=== PATIENT | female | born 1960 | race Caucasian/White ===

== ENCOUNTER 2017-05-27 13:24 | Inpatient (IN) ==
[2017-05-27] MEDS ORDERED: ASPIRIN PO ONE (13:34)
--- NOTE | 2017-05-27 13:40 | EKG Report ---
Test Performed on : 05/27/2017 1:36:33 PM Test Reason : palpitations sob Blood Pressure : / mmHG Vent. Rate : 097 BPM Atrial Rate : 097 BPM P-R Int : 178 ms QRS Dur : 080 ms QT Int : 412 ms P-R-T Axes : 069 052 055 degrees QTc Int : 523 ms Normal sinus rhythm. Biatrial enlargement Prolonged QT Abnormal ECG When compared with ECG of 11-DEC-2016 21:09, No significant change was found Unconfirmed Result
--- NOTE | 2017-05-27 13:49 | ED EKG INTERP ---
This chart was entered by Lydia Sahu Scribe, acting as scribe for Edward Jackson MD. EKG Interpretation - EKG Time of EKG reading by physician:: 13:38 EKG Read and Signed by:: Edward Jackson EKG Interpretation (*Must complete 3 of following elements*): Abnormal Rate: 97 Rhythm: Normal Sinus Rhythm Comments: Abnormal ECG This chart was documented by the indicated scribe, (Lydia Sahu Scribe) and accurately reflects the services I performed and decisions made by aMnuel wells Christophe I, MD, as attested by the provider's signature.
--- NOTE | 2017-05-27 13:56 | Diag Imaging Result Doc PS360 ---
EXAM: CHEST-2 VIEWS HISTORY: palpitations sob TECHNIQUE: Two views COMPARISON: 12/11/2016 FINDINGS: There is a right-sided portacatheter. This is unchanged. No pneumothorax. The lungs are well expanded. The heart is not enlarged. The vessels are not distended. No pneumonia. No pleural effusions. IMPRESSION: No acute abnormality. Electronically signed by Ignacio Campbell 05/27/2017 1:53 PM
[2017-05-27 14:10] LABS: MANUAL DIFF NEEDED? NO
[2017-05-27] MEDS ORDERED: NITROGLYCERIN ONE (14:14)
[2017-05-27] MEDS ORDERED: ZOFRAN ONE (14:14)
[2017-05-27] MEDS ORDERED: NITROGLYCERIN SL ONE (14:14)
[2017-05-27] MEDS ORDERED: MORPHINE ONE (14:14)
[2017-05-27] MEDS ORDERED: MORPHINE IV ONE ×2 (14:15→16:28)
[2017-05-27] MEDS ORDERED: ZOFRAN IV ONE ×2 (14:15→15:34)
[2017-05-27 14:19] LABS: BASO% 0.6 % (0.0-0.8); EOS% 3.7 % (0.0-10.0); HEMATOCRIT 40.1 % (37.0-47.0); HEMOGLOBIN 14.1 g/dL (12.0-16.0); IMM GRAN# 0.02 X1000 (0.0-0.04); IMM GRAN% 0.2 % (0.0-0.5); LYMPH% 41.1 % (20.5-51.1); MCH 31.3 PG (27-31); MCHC 35.2 g/dL (33-37); MCV 89.1 FL (81-99); MONO# 0.78 X1000 (0.11-0.59); MONO% 7.1 % (1.7-9.3); MPV 10.6 FL (7.4-10.4); NEUT% 47.3 % (42.2-75.2); PLT 198 X1000 (130-400)
[2017-05-27 14:27] LABS: AGAP 10; ALBUMIN 4.2 g/dL (3.5-5.0); ALKALINE PHOSPHATASE 75 U/L (32-104); BUN 5 mg/dL (8-22); CHLORIDE 100 mmol/L (98-107); CK PROFILE 82 U/L (24-173); COSMO 273; GOT 14 U/L (10-30); GPT 13 U/L (10-36); POTASSIUM 2.8 mmol/L (3.5-5.1); SODIUM 138 mmol/L (136-145); TCO2 28 mmol/L (25-35); TOTAL PROTEIN 6.7 g/dL (6.3-8.3)
[2017-05-27] MEDS ORDERED: NS + KCL 20 MEQ 1,000 ML IV ONE (15:34)
--- NOTE | 2017-05-27 15:42 | PROVIDER DOCUMENTATION ---
This chart was entered by Lydia Sahu Scribe, acting as scribe for Edward Jackson MD. HPI-Cardiac General - General Chief Complaint: Palpitations Stated Complaint: CHEST PAIN,BLOOD PRESSURE Time Seen by Provider: 05/27/17 14:12 Source: patient Allergies/Adverse Reactions: Patient Allergies Allergy/AdvReac Type Severity Reaction Status Date / Time aspirin Allergy Severe ANAPHYLAXIS Verified 05/27/17 13:37 latex Allergy Severe HIVES Verified 05/27/17 13:37 prochlorperazine edisylate * Allergy Severe ANAPHYLAXIS Verified 05/27/17 13:37 [From Compazine] prochlorperazine maleate * Allergy Severe ANAPHYLAXIS Verified 05/27/17 13:37 [From Compazine] Penicillins Allergy Mild ITCHING Verified 05/27/17 13:37 tizanidine HCl * Allergy Unknown Unknown Verified 05/27/17 13:37 [From Zanaflex] baclofen Allergy Unknown Verified 05/27/17 13:37 erythromycin base AdvReac Severe NAUSEA/VOMI Verified 05/27/17 13:37 [Erythromycin Base] TING ketorolac tromethamine * AdvReac Severe NAUSEA/VOMI Verified 05/27/17 13:37 [From Toradol] TING metoclopramide HCl * AdvReac Severe hallucinations, Verified 05/27/17 13:37 [From Reglan] face & hands contracted bilaterally ofloxacin [From Floxin] AdvReac Severe hallucinati Verified 05/27/17 13:37 ons amitriptyline [From Elavil] AdvReac Intermediate DIZZINESS Verified 05/27/17 13: 38 Home Medications: Home Medication List Medication Instructions Recorded Confirmed Last Taken Type Duloxetine [Cymbalta] 60 mg PO DAILY 05/26/13 05/27/17 04/19/16 History Methadone 40 mg PO BID 02/19/15 05/27/17 04/20/16 16:30 History Lisinopril 10 mg DAILY 01/29/16 05/27/17 04/19/16 History Lansoprazole [Prevacid] 30 mg PO DAILY 12/11/16 05/27/17 Unknown History - History of Present Illness-Cardiac Nature of Presenting Problem: 57 Y/O F presents to ER with the complain of having palpation and chest pain this am. pt states that she feels her heart is fluttering and is been going on for X5 days. pt states that she also have MALIK, nausea and jaw pain. pt denies any other symptoms. Location: reports: other (L side) Quality of Pain: reports: pressure Severity in ED: mild Onset/Duration: this morning Timing: improving Palpitation Quality: other (fluttering) Nitro Today/Relief: reports: provided by ED Aspirin Treatment Today: reports: no aspirin today Review of Systems - Adult - REVIEW OF SYSTEMS - ADULT Constitutional: reports: no symptoms reported Eyes: reports: no symptoms reported Ears, Nose, Mouth & Throat: reports: no symptoms reported Cardiovascular: reports: chest pain, palpitations Respiratory: reports: no symptoms reported Gastrointestinal: reports: nausea. denies: abdominal pain, diarrhea Genitourinary: reports: no symptoms reported Musculoskeletal: reports: no symptoms reported Integumentary: reports: no symptoms reported Neurological: reports: headache/migraines. denies: dizziness/vertigo Psychiatric: reports: no symptoms reported Endocrine: reports: no symptoms reported Hematologic/Lymphatic: reports: no symptoms reported Allergic/Immunologic: reports: no symptoms reported All Other Systems: Reviewed and Negative Past History - Adult - PAST MEDICAL HISTORY-ADULT Review of Records: reports: Old Records Reviewed, Nursing Assessment Review Major Childhood Illnesses: reports: denies history Cardiovascular: reports: HTN. denies: CHF, [place] Respiratory: denies: asthma, bronchitis, COPD Gastrointestinal: reports: GERD, ulcer, other (recent EGD found 3 ulcers, further f/u for crohns in the near future) Genitourinary: reports: kidney disease (right renal failure in 1995, no problems since that time) Musculoskeletal: reports: chronic pain Neurological: reports: headaches/migraines. denies: CVA, stroke deficits, Seizures/Epilepsy, speech difficulty Psychiatric: reports: anxiety Endocrine/Immune: reports: lupus Other Conditions: reports: other (lupus) Additional History: raynauds disease - PRIOR SURGERIES/PROCEDURES Surgical/Procedure History: reports: cholecystectomy, hysterectomy, other ( deviated septum, sinus surgery) - IMMUNIZATION STATUS Childhood Immunizations: See Nurse Assessment Flu Vaccine: See Nurse Assessment - FAMILY HISTORY Family History: CAD over 55 yo, CVA/TIA, HTN - SOCIAL HISTORY Smoking: cigarettes Provider spent 3-5 mins advising pt. on dangers of tobacco.: Discussed manners to quit use, and f/u contacts for add'l counseling. Physical Exam-General - PHYSICAL EXAM-ADULT Initial Vital Signs Reviewed: Yes - CONSTITUTIONAL General Appearance: appears well, alert - EYES Eyes: PERRL/EOMI, pink conjunctivae - HEAD, EARS, NOSE, MOUTH & THROAT HENMT: moist mucous membranes, normal ENT inspection - NECK Neck: non-tender, full range of motion, supple - RESPIRATORY Respiratory: chest non-tender, lungs clear, normal breath sounds - CARDIOVASCULAR Cardiovascular: normal peripheral pulses, regular rate, rhythm - GASTROINTESTINAL (ABDOMEN) Abdominal Exam: non tender, soft - MUSCULOSKELETAL Back Exam: normal inspection, no CVA tenderness Extremity: normal range of motion, non-tender, normal gait - SKIN Integumentary: normal color, normal turgor, warm/dry - NEUROLOGIC Neurologic: grossly normal, no motor/sensory deficits - PSYCHIATRIC Psych/Mental Status: normal mood/affect, normal thought content, normal thought process, oriented x 3 Progress - PLAN OF CARE/RESULTS Progress/Plan/Lab Results: Vital Signs - 8 hr 05/27/17 13:26 05/27/17 14:26 Temperature 98 F Pulse Rate 105 H 96 H Respiratory Rate 18 17 Blood Pressure 190/84 169/80 O2 Sat by Pulse Oximetry 97 94 L Laboratory Results - last 24 hr 05/27/17 05/27/17 05/27/17 14:05 14:05 14:05 WBC RBC Hgb Hct MCV MCH MCHC RDW Std Deviation Plt Count MPV Immature Gran % (Auto) Neut % (Auto) Lymph % (Auto) Jones % (Auto) Eos % (Auto) Baso % (Auto) Immature Gran # (Auto) Neut # (Auto) Lymph # (Auto) Jones # (Auto) Eos # (Auto) Baso # (Auto) D-Dimer Sodium 138 Potassium 2.8 L Chloride 100 Carbon Dioxide 28 Anion Gap 10 BUN 5 L Creatinine 0.7 Estimated GFR/1.73 m2 > 60 BUN/Creatinine Ratio 7 Glucose 96 Calculated Osmolality 273 Calcium 9.0 Total Bilirubin 0.30 AST 14 ALT 13 Alkaline Phosphatase 75 Creatine Kinase 82 Troponin T < 0.010 [id number] Pept 287 H Total Protein 6.7 Albumin 4.2 Globulin 3.0 Albumin/Globulin Ratio 2.0 05/27/17 05/27/17 14:05 14:05 WBC 10.95 H RBC 4.50 Hgb 14.1 Hct 40.1 MCV 89.1 MCH 31.3 H MCHC 35.2 RDW Std Deviation 12.8 Plt Count 198 MPV 10.6 H Immature Gran % (Auto) 0.2 Neut % (Auto) 47.3 Lymph % (Auto) 41.1 Jones % (Auto) 7.1 Eos % (Auto) 3.7 Baso % (Auto) 0.6 Immature Gran # (Auto) 0.02 Neut # (Auto) 5.18 Lymph # (Auto) 4.50 H Jones # (Auto) 0.78 H Eos # (Auto) 0.40 Baso # (Auto) 0.07 D-Dimer 0.41 Sodium Potassium Chloride Carbon Dioxide Anion Gap BUN Creatinine Estimated GFR/1.73 m2 BUN/Creatinine Ratio Glucose Calculated Osmolality Calcium Total Bilirubin AST ALT Alkaline Phosphatase Creatine Kinase Troponin T Wpd-A-Srmbelgscty Pept Total Protein Albumin Globulin Albumin/Globulin Ratio Orders Category Date Time Status Cardiac Monitoring DIRECTED Care 05/27/17 13:34 Active Nursing- Obtain EKG once Care 05/27/17 13:34 Active CHEST-2 VIEWS [RAD] Stat Exams 05/27/17 13:34 Completed CBC WITH DIFF [HEME] Stat Lab 05/27/17 14:05 Completed CK PROFILE [SP CHEM] Stat Lab 05/27/17 14:05 Completed COMPREHENSIVE METABOLIC PANEL [CHEM] Stat Lab 05/27/17 14:[address] D-D[address] [COAG] Stat Lab 05/27/17 14:05 Completed PRO B-NATRIURETIC PEPTIDE Stat Lab 05/27/17 14:05 Completed TROPONIN T Stat Lab 05/27/17 14:05 Completed Aspirin Med 05/27/17 13:34 Discontinued 325 mg PO NOW ONE Morphine Med 05/27/17 14:14 Discontinued 4 mg .ROUTE .STK-MED ONE Morphine Med 05/27/17 14:15 Discontinued 4 mg IV NOW ONE Nitroglycerin Sl [Nitroglycerin] Med 05/27/17 14:14 Discontinued 0.4 mg .ROUTE .STK-MED ONE Nitroglycerin Sl [Nitroglycerin] Med 05/27/17 14:14 Discontinued 0.4 mg SL NOW ONE Ns + KCl 20 Meq 1,000 ml Med 05/27/17 15:34 Discontinued IV Per Protocol Ondansetron [Zofran] Med 05/27/17 14:14 Discontinued 4 mg .ROUTE .STK-MED ONE Ondansetron [Zofran] Med 05/27/17 14:15 Discontinued 4 mg IV NOW ONE Ondansetron [Zofran] Med 05/27/17 15:34 Discontinued 4 mg IV NOW ONE EKG [EKG] Stat Ther 05/27/17 13:34 Draft Result Diagrams: 05/27/17 14:05 05/27/17 14:05 - XRAY 1 XRAY: Bilateral XRAY Study: Chest Impression: Normal XRAY Interpretation: no acute abnormality by radiologist - CONSULTS/PCP/HOSPITALIST Notification #1 *Consult/PCP/Hospitalist*: Dr. Dozier Time Discussed: 15:39 Reason/Comments: discussed about pt Departure - Departure Date of Disposition Decision: 05/27/17 Time of Disposition Decision: 15:41 DIAGNOSIS: Angina at rest, Hypokalemia Disposition: ADMITTED INPATIENT 09 Certified Medical Emergency: Emergent Condition: Stable Referrals and Follow-Ups: Faizan Dozier MD [Primary Care Provider] - - Critical Care Note This patient required my direct & personal management of CC.: Yes Total Time (mins): 40 Critical Care Statement: This patient required my direct personal management to treat or rule out processes, the absence of which, could potentiallly result in sudden, clinically significant life or limb threatening deterioration. Attestation - Physician/ SAPPHIRE Attestation The physician spent face to face time with patient:: Yes Advanced Practice Provider documentation review:: Supervising physician onsite and consulted in the evaluation and care of this patient. The physician did have a face to face encounter with the patient. This chart was documented by the indicated scribe, (Lydia Sahu Scribe) and accurately reflects the services I performed and decisions made by me, Edward Jackson MD, as attested by the provider's signature.
[2017-05-27] MEDS ORDERED: MORPHINE IV PRN (16:04)
--- NOTE | 2017-05-27 17:09 | EKG Report ---
Test Performed on : 05/27/2017 4:56:08 PM Test Reason : Repeat Blood Pressure : / mmHG Vent. Rate : 072 BPM Atrial Rate : 072 BPM P-R Int : 156 ms QRS Dur : 086 ms QT Int : 478 ms P-R-T Axes : 049 010 028 degrees QTc Int : 523 ms Normal sinus rhythm. Moderate voltage criteria for LVH, may be normal variant Prolonged QT Abnormal ECG When compared with ECG of 27-MAY-2017 13:36, (Unconfirmed) No significant change was found Unconfirmed Result
--- NOTE | 2017-05-27 17:09 | ED EKG INTERP ---
This chart was entered by Lydia Sahu Scribe, acting as scribe for Edward Jackson MD. EKG Interpretation - EKG Time of EKG reading by physician:: 16:56 EKG Read and Signed by:: Edward Jackson EKG Interpretation (*Must complete 3 of following elements*): Abnormal Rate: 72 Rhythm: Normal Sinus Rhythm Comments: Abnormal ECG Attestation - Physician/ SAPPHIRE Attestation The physician spent face to face time with patient:: Yes Advanced Practice Provider documentation review:: Supervising physician onsite and consulted in the evaluation and care of this patient. The physician did have a face to face encounter with the patient. This chart was documented by the indicated scribe, (Lydia Sahu Scribe) and accurately reflects the services I performed and decisions made by Manuel wells Christophe I, MD, as attested by the provider's signature.
[2017-05-27] MEDS: MORPHINE IV PRN ×3 (19:00→23:15)
[2017-05-27] MEDS: ZOFRAN IV PRN (21:07)
[2017-05-27] MEDS: ATIVAN PO PRN (21:08)
[2017-05-27] MEDS: TOPROL XL PO SCH (21:08)
[2017-05-27] MEDS: CYMBALTA PO SCH (21:08)
[2017-05-27] MEDS: LATUDA PO SCH (21:09)
[2017-05-27] MEDS: METHADONE PO SCH (21:24)
[2017-05-27] MEDS: PRILOSEC PO SCH (21:32)
[2017-05-28] MEDS: MORPHINE IV PRN ×8 (01:24→20:26)
[2017-05-28] MEDS: ZOFRAN IV PRN ×5 (02:58→22:41)
[2017-05-28 06:12] LABS: HEMATOCRIT 38.7 % (37.0-47.0); HEMOGLOBIN 12.9 g/dL (12.0-16.0); MCH 30.5 PG (27-31); MCHC 33.3 g/dL (33-37); MCV 91.5 FL (81-99); MPV 11.3 FL (7.4-10.4); RBC 4.23 XMIL (4.2-5.4)
[2017-05-28 06:32] LABS: AGAP 8; ALBUMIN 3.7 g/dL (3.5-5.0); ALKALINE PHOSPHATASE 70 U/L (32-104); BUN 8 mg/dL (8-22); CALCIUM 8.3 mg/dL (8.8-10.2); CHLORIDE 108 mmol/L (98-107); COSMO 283; GOT 13 U/L (10-30); GPT 11 U/L (10-36); HDL 21 mg/dL (45-65); LDL 102 mg/dL; MAGNESIUM 1.9 mg/dL (1.5-2.7); POTASSIUM 4.1 mmol/L (3.5-5.1); SODIUM 143 mmol/L (136-145); TCO2 28 mmol/L (25-35); TOTAL PROTEIN 6.1 g/dL (6.3-8.3); TRIGLYCERIDES 250 mg/dL (35-135); VLDL 50 mg/dL
[2017-05-28] MEDS ORDERED: PRILOSEC PO SCH (07:00)
--- NOTE | 2017-05-28 08:39 | PROGRESS NOTE ---
DATE: 05/28/2017 SUBJECTIVE: Patient still complains of chest wall pain. Now she states it is radiating to her left shoulder and left axilla. It has been persistent all night, unchanging. Has woken her up multiple times. It does not wax and wane. PHYSICAL EXAMINATION: Vital Signs: Temperature 98, pulse 88, respiratory rate 18, BP 150/70. General: Patient is awake, alert. She appears in no distress. Neck: Supple. CV: Regular rate. Chest: Clear. Abdomen: Soft. Extremities: Moves all extremities. LABORATORIES: CBC, CMP, and all 3 sets of troponins have been normal. ASSESSMENT: 1. Hypokalemia, resolved. 2. Leukocytosis, resolved. 3. Chest pain. Certainly does not appear to be cardiac in nature. She has a CT plan this morning. 4. Hypothyroidism. We will adjust her Synthroid. 5. Bipolar. 6. Chronic pain. PLAN: Hopefully, patient can be discharged home after her CT is negative. If her CT is abnormal, we will consult cardiology. cc: Faizan Dozier MD
[2017-05-28] MEDS ORDERED: CYMBALTA PO SCH (09:00)
[2017-05-28] MEDS ORDERED: LATUDA PO SCH (09:00)
[2017-05-28] MEDS: METHADONE PO SCH ×2 (09:26→21:23)
--- NOTE | 2017-05-28 09:53 | Diag Imaging Result Doc PS360 ---
CT-ANGIOGRAM HEART W/WO CONT - 05/28/2017 INDICATION: Chest Pain TECHNIQUE: This is an over read of a CT coronary angiogram with intravenous contrast. The heart and vascular structures will be interpreted by cardiology. COMPARISON: None FINDINGS: There is no mass or adenopathy. There appears to be a central line in the SVC with the tip at the cavoatrial junction. The lungs and airways are clear. There are some slight linear atelectasis in the lingula. Upper abdominal images are unremarkable. There are moderate degenerative changes of the spine. No acute or suspicious bony lesion. IMPRESSION: Negative exam. Electronically signed by Shayan Oliver 05/28/2017 9:51 AM
--- NOTE | 2017-05-28 11:56 | CTA CORONARY ---
DATE: 05/28/2017 REQUESTING DOCTOR: Faizan Dozier MD. INTERPRETING PHYSICIAN: Davian Nur MD INDICATION: Chest pain. DESCRIPTION OF PROCEDURE: The patient was treated with beta-blockers and received intravenous infusion of IV contrast per protocol. Multiple tomographic views of the cardiac structures were obtained. The following is a summary of the anatomical findings. SUMMARY: 1. The left atrium, left atrial appendage, and mitral valve appear to be anatomically normal. 2. The pulmonary veins have normal anatomical distribution with the usual superior and inferior pulmonary veins. 3. The pulmonary arteries also have normal anatomical distribution. No pulmonary embolus is noted. 4. The aortic valve and aortic arch, ascending aorta, descending thoracic aorta showed normal anatomical structure. No significant calcification or any significant abnormalities noted within those structures. 5, The left ventricle appears to be generous in size with an end-diastolic volume of 146 mL. Ejection fraction is calculated at 56% which is normal. CORONARY ARTERIES: 1. The left main coronary artery: The left main coronary artery is anatomically normal and divides into LAD and circumflex. 2. Left anterior descending coronary artery: This vessel appears to be anatomically normal. It gives rise to a major diagonal branch proximally. More distally, the LAD gives rise to a terminal diagonal branch and the apical LAD. No critical lesions are noted along the course of the LAD. Due to some motion artifact, there was a suggestion of stenosis in the proximal segment of the major diagonal branch. However, there is a tubular plaque of no more than 25% at that level. Again, the possibility of motion artifact leading to this finding is likely. No critical stenosis is noted. 3. Circumflex coronary artery: The circumflex coronary artery is a nondominant vessel. It basically gives rise to an obtuse marginal branch and a terminal A-V branch. The circumflex is a small system in extent and is free of any obstruction. 4. Right coronary artery: The right coronary artery is a dominant system. It appears to be free of any significant plaque. Some motion artifact is present. However, there is no definite indication of any critical stenosis. The distal right coronary artery is free of obstruction, divides into a posterior descending branch and a posterolateral system which appear to be free of any obstruction. CORONARY CALCIUM SCORE: The coronary calcium score is estimated at 9 units. Using the patient's LDL cholesterol, HDL cholesterol and systolic blood pressure, her estimated 10- year risk for cardiac events is estimated at 11%, which is deemed to be borderline moderate. The arterial age in this case is 55 years, which would be 2 years younger than chronological age. CONCLUSION: In summary, this study shows: 1. Very mild coronary atherosclerosis, coronary calcium score of 9, with no evidence of any significant coronary stenosis. The left main, LAD proper, circumflex system, and the entire coronary artery system appear to be free of any obstruction. There is a questionable mild tubular stenosis within the proximal major diagonal branch of no more than 25%. However, motion artifact is suspected. 2. Normal left ventricular systolic function, ejection fraction of 56% with moderately enlarged left ventricle. 3. Unremarkable aortic, mitral, pulmonary arteries, pulmonary veins, aorta. 4. No pericardial abnormalities noted. 5. Epicardial fat pad is present. 6. The 10-year risk for cardiac events is estimated at 11% which is borderline moderate. Arterial age is estimated at 55 years using the GOMEZ calculator. Clinical correlation recommended. cc: Davian Nur MD
[2017-05-28] MEDS: LATUDA PO SCH (21:22)
[2017-05-28] MEDS: PRILOSEC PO SCH (21:23)
[2017-05-28] MEDS: CYMBALTA PO SCH (21:23)
[2017-05-28] MEDS: ATIVAN PO PRN (21:30)
[2017-05-28] MEDS: TOPROL XL PO SCH (21:52)
[2017-05-29] MEDS: MORPHINE IV PRN ×6 (01:22→15:17)
[2017-05-29 06:26] VITALS: BP 159/52
[2017-05-29] MEDS: ZOFRAN IV PRN (06:34)
[2017-05-29] MEDS ORDERED: SYNTHROID PO SCH (07:00)
[2017-05-29] MEDS: METHADONE PO SCH (08:51)
--- NOTE | 2017-05-29 12:15 | DISCHARGE SUMMARY ---
ADMISSION DATE: 05/27/2017 DISCHARGE DATE: 05/29/2017 DISCHARGE DIAGNOSES: 1. Chest pain not likely cardiac with her coronary CT being essentially negative. 2. Hypokalemia resolved. 3. Leukocytosis resolved. 4. Chronic esophageal ulcers. 5. Hypothyroidism. 6. Bipolar. 7. Chronic pain. 8. Lupus. CONSULTATIONS: None. PROCEDURES: Cardiac CT essentially negative per Dr. Nur with very mild coronary atherosclerosis with calcium score of 9, with no significant stenosis and a 10-year risk of events of estimated 11%. BRIEF HOSPITAL COURSE: Patient is a 57-year-old female, who was admitted as noted on the HPI. Treated in usual fashion. Placed on cardiac rule out. Thankfully, she had no further events. She was still having chest pain midsternal radiating to both left and right side. Certainly this is more likely to be esophageal at this point secondary to her reflux and chronic gastritis. Thankfully, she had an uneventful hospital course. DISPOSITION: The patient will be discharged home. DISCHARGE INSTRUCTIONS: No changes were made in her home medications. She is instructed to follow up with her primary care Dr. Kira Araujo in the next 1-2 weeks. Certainly may need to follow up with GI in the future. She has recently had an EGD. We will continue PPI's. No other changes were made in her chronic home medications. DISCHARGE TIME: Thirty-four minutes was spent in total care. cc: Faizan Dozier MD
--- NOTE | 2017-05-30 15:26 | HISTORY AND PHYSICAL ---
CHIEF COMPLAINT: Palpitations. HISTORY OF PRESENT ILLNESS: Patient is a 57-year-old female, who presented to [facility] complaining of chest, pain palpitations. She notes the chest pain has been going on for 2 or 3 days and finally became severe enough to come to the emergency department. Denies any previous history of heart disease. Notes that she had gone to her pain doctor and was told her blood pressure was elevated. When she told them that she was having some chest pain and fluttering they sent her to the emergency department. Notes the pain goes to her left shoulder, sometimes to her left jaw. She is also having headaches. Denies any fevers chills. Denies any cough or congestion. ALLERGIES: Aspirin causing anaphylaxis, latex, Compazine anaphylaxis, penicillin causing itching, Zanaflex and baclofen causing nausea, erythromycin causing nausea, Toradol nausea, Reglan hallucinations, Floxin hallucinations and Elavil dizziness. MEDICATIONS: Cymbalta 60. Methadone 40 b.i.d. Prevacid 30 once a day. PAST MEDICAL HISTORY: Hypertension. No history of congestive heart failure, [place]. History of migraines. Kidney failure in 1995 although has had no problems since. Chronic reflux with peptic ulcer disease. History of lupus, anxiety, depression. She has had a cholecystectomy and hysterectomy. She has had sinus surgery. FAMILY HISTORY: Positive for coronary artery disease, hypertension and strokes. REVIEW OF SYSTEMS: Denies any fevers, chills. Denies any cough but does note that she has had shortness of breath with any activity. Denies any chest pain prior to 5 days ago. Denies dysuria, frequency, urgency. Denies hesitancy, polyuria, or polydipsia. Denies skin rashes, weight loss, or weight gain. SOCIAL HISTORY: She lives at home. She is on disability. She does smoke. PHYSICAL: Temp 98 degrees, pulse 105, respiratory 18, BP 190/84, currently 169/90, sat 94% on room air.General: The patient is awake, alert. She is currently in no real respiratory distress. Pleasant to talk with. Lying flat in bed. Neck: Is supple. CV: Regular rate. Chest: Relatively clear. Abdomen: Soft. Extremities: Moves all extremities. Neuro: No focal changes. LABS: CBCs, CMP, 1st set of cardiac enzymes essentially normal with a potassium at 2.8. ASSESSMENT: 1. Hypokalemia. 2. Chest pain not likely cardiac. Likely more related to her peptic ulcer disease. 3. Mild leukocytosis. 4. Lupus. 5. Shortness of breath. 6. Hypertension. PLAN: We will admit patient to the hospital. Replace her potassium. We will rule out for an [place]. Schedule a CT of the heart in the morning. If abnormal we will consult Cardiology for further invasive testing. Otherwise, we will continue to follow. cc: Faizan Dozier MD
== END 2017-05-29 15:45 | disposition home or self-care (01) ==
LOC: P.ED 13:24 → P.MEDSURG 16:00